=== PATIENT | male | born 1985 | race Caucasian/White ===

== ENCOUNTER 2019-03-20 22:02 | Emergency (ER) | payer BC, MEDICAID ==
[~2019-03-20] VITALS: Ht 182.9 cm; Wt 109.1 kg
[2019-03-20] MEDS ORDERED: LIDOCAINE W/EPINEPHRINE 1% 20ML VIAL SC ONE ×2 (22:30)
[2019-03-20] MEDS ORDERED: AUGMENTIN 875 MG TAB PO ONE (22:30)
[2019-03-20] MEDS ORDERED: TETANUS/DIPHTHERIA TOX ADSORB ADULT 0.5ML SYR/VIAL (90714) IM ONE (22:45)
[2019-03-20] MEDS ORDERED: KEFL500C17 PO (22:48)
[2019-03-20] MEDS ORDERED: CEPHALEXIN 500 MG CAP PO ONE (23:00)
[2019-03-20 23:33] VITALS: BP 138/92
--- NOTE | 2019-03-21 09:46 | REP ---
Portable chest x-ray: Single view. History: Shortness of breath. Pepper spray exposure. Findings: Monitoring electrodes overlie the chest. Heart is not enlarged. Lungs are clear. Pleural angles are sharp. No bony abnormality. Impression: No active disease. Electronically Signed by John Paul Lambert MD 03/21/2019 09:37 A
== END 2019-03-20 23:39 | disposition home or self-care (01) ==
LOC: M ED 22:02
DX: S51.811A Laceration without foreign body of right forearm, initial encounter (principal); S51.812A Laceration without foreign body of left forearm, initial encounter; W26.0XXA Contact with knife, initial encounter; Y92.89 Other specified places as the place of occurrence of the external cause; Z88.0 Allergy status to penicillin; Z88.8 Allergy status to other drugs, medicaments and biological substances; Z91.030 Bee allergy status; F17.210 Nicotine dependence, cigarettes, uncomplicated

== ENCOUNTER 2019-12-21 19:51 | Emergency (ER) | payer BC ==
[~2019-12-21 19:51] MED LIST: KEFL500C17 PO
[2019-12-21] MEDS ORDERED: SERO400T PO (20:10)
[2019-12-21] MEDS ORDERED: METF500T13 PO (20:10)
[2019-12-21] MEDS ORDERED: LEXA1TAB PO (20:10)
[2019-12-21] MEDS ORDERED: ATOR40TA75 PO (20:10)
[2019-12-21] MEDS ORDERED: OMEP-218 PO (20:10)
[2019-12-21] MEDS ORDERED: INSULANT SC (20:10)
[2019-12-21] MEDS ORDERED: PRAZ5CAP PO (20:10)
[2019-12-21] MEDS ORDERED: WELLTAB40 PO (20:10)
[2019-12-21] MEDS ORDERED: GLIP5TAB20 (20:10)
[2019-12-21] MEDS ORDERED: INSUR SC (20:10)
[2019-12-21] MEDS ORDERED: NORT75CA2 PO (20:10)
[2019-12-21] MEDS ORDERED: LABETALOL 100 MG TAB PO ONE (20:45)
[2019-12-21 20:59] VITALS: BP 150/104
--- NOTE | 2019-12-21 21:12 | REPVR ---
PROCEDURE INFORMATION: Exam: CT Head Without Contrast Exam date and time: 12/21/2019 8:46 PM Age: 34 years old Clinical indication: Injury or trauma; Initial encounter; Blunt trauma (contusions or hematomas) TECHNIQUE: Imaging protocol: Computed tomography of the head without contrast. Radiation optimization: All CT scans at this facility use at least one of these dose optimization techniques: automated exposure control; mA and/or kV adjustment per patient size (includes targeted exams where dose is matched to clinical indication); or iterative reconstruction. COMPARISON: No relevant prior studies available. FINDINGS: Brain: Normal. No hemorrhage. Unremarkable white matter. No mass effect. Ventricles: No ventriculomegaly. Bones/joints: Unremarkable. No acute fracture. Paranasal sinuses: Visualized sinuses are unremarkable. No fluid levels. Mastoid air cells: Visualized mastoid air cells are well aerated. Soft tissues: Unremarkable. IMPRESSION: No acute intracranial abnormality. Electronically signed by: Red Wood On 12/21/2019 21:11:44 PM
--- NOTE | 2019-12-21 21:14 | REPVR ---
PROCEDURE INFORMATION: Exam: CT Cervical Spine Without Contrast Exam date and time: 12/21/2019 8:46 PM Age: 34 years old Clinical indication: Injury or trauma; Initial encounter; Blunt trauma TECHNIQUE: Imaging protocol: Computed tomography images of the cervical spine without contrast. Radiation optimization: All CT scans at this facility use at least one of these dose optimization techniques: automated exposure control; mA and/or kV adjustment per patient size (includes targeted exams where dose is matched to clinical indication); or iterative reconstruction. COMPARISON: No relevant prior studies available. FINDINGS: Vertebrae: Vertebral body height and AP alignment is preserved. No acute cervical spine fracture. Discs/Spinal canal/Neural foramina: No definite significant central canal stenosis within limitations of technique. Soft tissues: Unremarkable. Lungs: Lung apices are normal. Pleural space: No visible pneumothorax. IMPRESSION: No acute cervical spine fracture. Electronically signed by: Red Wood On 12/21/2019 21:14:25 PM
[2019-12-21 21:22] LABS: BASO % 0.5 % (0.0-1.0); EOS # 0.1 10^3/uL (0.0-0.5); EOS % 1.5 % (0.0-3.0); HEMATOCRIT 43.5 % (42.0-52.0); LYMPH # 2.4 10^3/uL (1.5-5.0); LYMPH % 36.3 % (24.0-44.0); MEAN CORPUSCULAR HEMOGLOBIN 30.8 pg (27.0-33.0); MEAN CORPUSCULAR HGB CONC 34.5 g/dl (32.0-36.5); MEAN CORPUSCULAR VOLUME 89.3 fl (80.0-96.0); MONO # 0.6 10^3/uL (0.0-0.8); MONO % 8.7 % (0.0-5.0); NEUTROPHILS # 3.4 10^3/uL (1.5-8.5); NEUTROPHILS % 52.5 % (36.0-66.0); PLATELET COUNT, AUTOMATED 274 10^3/uL (150-450); RED BLOOD COUNT 4.87 10^6/uL (4.30-6.10); WHITE BLOOD COUNT 6.6 10^3/uL (4.0-10.0)
--- NOTE | 2019-12-21 21:41 | REPVR ---
PROCEDURE INFORMATION: Exam: XR Chest, 2 Views Exam date and time: 12/21/2019 9:35 PM Age: 34 years old Clinical indication: Chest pain; Type not specified TECHNIQUE: Imaging protocol: XR of the chest Views: 2 views. COMPARISON: [place] PORTABLE CHEST X-RAY 03/20/2019 10:54 PM FINDINGS: Lungs: Unremarkable. No consolidation. Pleural space: Unremarkable. No pleural effusion. No pneumothorax. Heart/Mediastinum: Unremarkable. No cardiomegaly. Bones/joints: Unremarkable. IMPRESSION: No acute findings. Electronically signed by: Red Wood On 12/21/2019 21:41:51 PM
[2019-12-21 22:07] LABS: BLOOD UREA NITROGEN 16 MG/DL (7-18); CALCIUM LEVEL 9.3 MG/DL (8.5-10.1); CARBON DIOXIDE LEVEL 29 MEQ/L (21-32); CHLORIDE LEVEL 100 MEQ/L (98-107); CK-MB VALUE MASS 6.5 NG/ML (<3.6); CPK CREATINE PHOSPHOKINASE 982 U/L (39-308); CREATININE FOR GFR 1.14 MG/DL (0.70-1.30); FREE T4 0.81 NG/DL (0.76-1.46); GLOMERULAR FILTRATION RATE > 60.0 (>60); GLUCOSE, FASTING 153 MG/DL (70-100); MB/CK RELATIVE INDEX 0.66 (< OR =4); POTASSIUM SERUM 4.2 MEQ/L (3.5-5.1); SODIUM LEVEL 134 MEQ/L (136-145); TROPONIN I < 0.02 NG/ML (< 0.10)
[2019-12-21] MEDS ORDERED: NS 1,000 ML IV ONE (22:15)
[2019-12-21 23:04] VITALS: BP 166/78
--- NOTE | 2020-01-08 08:58 | ECGEPIP ---
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
== END 2019-12-21 23:54 | disposition home or self-care (01) ==
LOC: M ED 19:51
DX: S09.90XA Unspecified injury of head, initial encounter (principal); I10 Essential (primary) hypertension; M54.2 Cervicalgia; R29.6 Repeated falls; Y04.8XXA Assault by other bodily force, initial encounter; Y92.149 Unspecified place in prison as the place of occurrence of the external cause; R00.0 Tachycardia, unspecified; E11.9 Type 2 diabetes mellitus without complications; E78.9 Disorder of lipoprotein metabolism, unspecified; Z95.810 Presence of automatic (implantable) cardiac defibrillator

== ENCOUNTER 2020-01-06 13:37 | Inpatient (IN) | payer BC, OTHER ==
[~2020-01-06] VITALS: Ht 185.4 cm; Wt 129.6 kg
[~2020-01-06 13:37] MED LIST changes: +ATOR40TA75 PO; +GLIP5TAB20; +INSULANT SC; +INSUR SC; +LEXA1TAB PO; +METF500T13 PO; +NORT75CA2 PO; +OMEP-218 PO; +PRAZ5CAP PO; +SERO400T PO; +WELLTAB40 PO
[2020-01-06] MEDS ORDERED: NS 1,000 ML IV ONE ×3 (14:00→16:30)
[2020-01-06] MEDS ORDERED: OMEGCAP4 PO (14:09)
[2020-01-06] MEDS ORDERED: LAMO100T80 PO (14:09)
[2020-01-06] MEDS ORDERED: HYDR25TAB PO (14:09)
[2020-01-06] MEDS ORDERED: AMIT25TA PO (14:09)
[2020-01-06] MEDS ORDERED: CLONI1TA PO (14:09)
[2020-01-06 14:20] LABS: BASO % 0.5 % (0.0-1.0); EOS # 0.2 10^3/uL (0.0-0.5); EOS % 2.1 % (0.0-3.0); HEMATOCRIT 43.8 % (42.0-52.0); HEMOGLOBIN 14.9 g/dl (13.5-17.5); LYMPH # 2.5 10^3/uL (1.5-5.0); LYMPH % 30.2 % (24.0-44.0); MEAN CORPUSCULAR HEMOGLOBIN 30.5 pg (27.0-33.0); MEAN CORPUSCULAR VOLUME 89.6 fl (80.0-96.0); MONO # 0.7 10^3/uL (0.0-0.8); MONO % 8.6 % (0.0-5.0); NEUTROPHILS # 4.7 10^3/uL (1.5-8.5); NEUTROPHILS % 57.7 % (36.0-66.0); PLATELET COUNT, AUTOMATED 280 10^3/uL (150-450); RED BLOOD COUNT 4.89 10^6/uL (4.30-6.10); WHITE BLOOD COUNT 8.2 10^3/uL (4.0-10.0)
--- NOTE | 2020-01-06 14:32 | REPVR ---
PROCEDURE INFORMATION: Exam: CT Head Without Contrast Exam date and time: 01/06/2020 2:19 PM Age: 34 years old Clinical indication: Injury or trauma; Fall; Unconscious; Additional info: Loc TECHNIQUE: Imaging protocol: Computed tomography of the head without contrast. Radiation optimization: All CT scans at this facility use at least one of these dose optimization techniques: automated exposure control; mA and/or kV adjustment per patient size (includes targeted exams where dose is matched to clinical indication); or iterative reconstruction. COMPARISON: CT Head without contrast 12/21/2019 8:42 PM FINDINGS: Brain: No acute intracranial hemorrhage, cerebral edema, or midline shift. Cerebral ventricles: No ventriculomegaly. Bones/joints: No acute fracture. Paranasal sinuses: Visualized sinuses are unremarkable. No fluid levels. Mastoid air cells: Visualized mastoid air cells are well aerated. Orbits: The included orbital structures are unremarkable. Soft tissues: Unremarkable. IMPRESSION: No acute intracranial abnormality. Electronically signed by: Jaydon Ibrahim On 01/06/2020 14:32:44 PM
--- NOTE | 2020-01-06 14:52 | REPVR ---
PROCEDURE INFORMATION: Exam: XR Chest, 1 View Exam date and time: 01/06/2020 1:58 PM Age: 34 years old Clinical indication: Pain; Other: Syncope; Additional info: Altered mental status TECHNIQUE: Imaging protocol: XR of the chest Views: 1 view. COMPARISON: CR Chest, 2 view PA, Lat 12/21/2019 8:59 PM FINDINGS: Lungs: Unremarkable. No consolidation. Pleural space: Unremarkable. No pleural effusion. No pneumothorax. Heart/Mediastinum: Unremarkable. No cardiomegaly. Bones/joints: Unremarkable. IMPRESSION: No acute findings. Electronically signed by: Jaydon Ibrahim On 01/06/2020 14:52:23 PM
[2020-01-06 15:00] LABS: ACETAMINOPHEN LEVEL < 2.0 UG/ML (10.0-30.0); ALBUMIN 4.2 GM/DL (3.2-5.2); ALT/SGPT 90 U/L (12-78); BILIRUBIN,DIRECT < 0.1 MG/DL (0.0-0.2); BILIRUBIN,TOTAL 0.3 MG/DL (0.2-1.0); BLOOD UREA NITROGEN 20 MG/DL (7-18); CALCIUM LEVEL 9.9 MG/DL (8.5-10.1); CARBON DIOXIDE LEVEL 25 MEQ/L (21-32); CHLORIDE LEVEL 102 MEQ/L (98-107); CK-MB VALUE MASS 8.6 NG/ML (<3.6); CPK CREATINE PHOSPHOKINASE 928 U/L (39-308); CREATININE FOR GFR 1.49 MG/DL (0.70-1.30); ETHYL ALCOHOL (ETHANOL) < 0.003 % (0.000-0.010); GLOMERULAR FILTRATION RATE 56.8 (>60); GLUCOSE, FASTING 172 MG/DL (70-100); MB/CK RELATIVE INDEX 0.93 (< OR =4); POTASSIUM SERUM 4.6 MEQ/L (3.5-5.1); SALICYLATE LEVEL 1.8 MG/DL (5.0-30.0); SODIUM LEVEL 137 MEQ/L (136-145); TOTAL PROTEIN 7.7 GM/DL (6.4-8.2); TROPONIN I < 0.02 NG/ML (< 0.10)
[2020-01-06] MEDS ORDERED: LIDOCAINE 2% 5ML JELLY UROJET TOP ONE (15:15)
[2020-01-06 18:14] LABS: AMPHETAMINES LEVEL URINE NEGATIVE (NEGATIVE); BARBITURATES URINE NEGATIVE (NEGATIVE); BENZODIAZEPINES URINE NEGATIVE (NEGATIVE); CANNABINOIDS URINE NEGATIVE (NEGATIVE); COCAINE METABOLITE URINE NEGATIVE (NEGATIVE); METHADONE URINE NEGATIVE (NEGATIVE); OPIATES URINE NEGATIVE (NEGATIVE); PHENCYCLIDINE URINE NEGATIVE (NEGATIVE)
--- NOTE | 2020-01-06 18:37 | REPVR ---
PROCEDURE INFORMATION: Exam: XR Abdomen, 1 View Exam date and time: 01/06/2020 5:41 PM Age: 34 years old Clinical indication: Other: R/O fb TECHNIQUE: Imaging protocol: XR of the abdomen. Views: Frontal supine view of the abdomen. 1 View. COMPARISON: No relevant prior studies available. FINDINGS: Gastrointestinal tract: Normal. No bowel dilation. Bones/joints: Unremarkable. Soft tissues: No foreign body is identified. IMPRESSION: No foreign body is identified. Electronically signed by: Jaydon Ibrahim On 01/06/2020 18:37:16 PM
[2020-01-06 18:55] LABS: ACETAMINOPHEN LEVEL < 2.0 UG/ML (10.0-30.0); SALICYLATE LEVEL < 1.7 MG/DL (5.0-30.0)
[2020-01-06] MEDS ORDERED: MOM 30ML SUSPENSION UDC PO PRN (19:45)
[2020-01-06] MEDS ORDERED: ACETAMINOPHEN TAB 650MG DOSE (2X325MG) PO PRN (19:45)
[2020-01-06] MEDS ORDERED: MAALOX 30 ML SUSP *UDC PO PRN (19:45)
--- NOTE | 2020-01-06 19:48 | HPEPDOC ---
[facility] Medical History & Physical Date of Admission Jan 06, 2020 Date of Service: Jan 06, 2020 Other Provider [place] Attending Physician: MELITON VILLAGRAN MD History and Physical TIME OF SERVICE: 8:20 PM CHIEF COMPLAINT: Dizziness HISTORY OF PRESENT ILLNESS: This 34-year-old gentleman has been having episodes of dizziness when he exerts himself for the last year. Since the month. Episodes have been occurring more frequently. Episodes of dizziness accompanied by blurry vision/seeing spots, sensation of the ground moving beneath him, shortness of breath, sweating. He noticed that episodes are usually more severe when he is in the shower. He denies having prodromal chest pain, palpitations, or ringing in his ears. Today he had an episode where he fell, lost consciousness, and bit his tongue but didn't have urinary or fecal incontinence. REVIEW OF SYSTEMS: 12 point review of systems negative except as listed in HPI PAST MEDICAL/ SURGICAL HISTORY: IDDM HTN SOCIAL HISTORY: He quit smoking 1 year ago He does drink alcohol He doesn't use recreational drugs FAMILY HISTORY: Diabetes Dyslipidemia ALLERGIES: Please see below. HOME MEDICATIONS: Please see below. PHYSICAL EXAMINATION: Vital Signs Date Time Temp Pulse Resp B/P (MAP) Pulse Ox O2 Delivery O2 Flow Rate FiO2 01/06/20 13:42 98.3 115 23 170/90 99 Room Air GEN: obese/ well developed/ NAD INTEGUMENT: not flushed/ not jaundice / no rashes / ecchymosis and flat keloid scars that appear to be due to cuts on his lower arms HEENT: he has lacerations on the sides of his tounge / dried blood on his lips /mucus membranes moist and pink / sclera anicteric CVS: RRR/NMRG/ no JVP / no lower extremity edema LUNGS: able to speak full sentences without stopping to take a breath / no coughing / lungs are clear to auscultation bilaterally on room air ABDOMEN: Contour ( obese) MSK/EXTREMITIES: His legs in handcuffs with long chains NEURO: he has horizontal left beating nystagmus / CN 2-12 are grossly intact / speech is not dysarthric / strength is 5/5 PSYCH: alert and oriented to person place and time/ able to understand and follow all commands LABORATORY DATA: 01/06/20 14:05 01/06/20 13:54: Bedside Glucose (Misc Panel) 159H 01/06/20 14:05: Immature Granulocyte % (Auto) 0.9, Neutrophils (%) (Auto) 57.7, Lymphocytes (%) (Auto) 30.2, Monocytes (%) (Auto) 8.6H, Eosinophils (%) (Auto) 2.1, Basophils (%) (Auto) 0.5, Neutrophils # (Auto) 4.7, Lymphocytes # (Auto) 2.5, Monocytes # (Auto) 0.7, Eosinophils # (Auto) 0.2, Basophils # (Auto) 0.0, Nucleated Red Blood Cells % (auto) 0.0, Anion Gap 10, Glomerular Filtration Rate 56.8L, Lactic Acid Level 4.6*H, Calcium Level 9.9, Total Bilirubin 0.3, Direct Bilirubin < 0.1, Aspartate Amino Transf (AST/SGOT) 48H, Alanine Aminotransferase (ALT/SGPT) 90H, Alkaline Phosphatase 72, Ammonia 90H, Total Creatine Kinase 928H, Creatine Kinase MB 8.6H, Creatine Kinase MB Relative Index 0.93, Troponin I < 0.02, Total Protein 7.7, Albumin 4.2, Albumin/Globulin Ratio 1.2, Thyroid Stimulating Hormone (TSH) 1.610, Salicylates Level 1.8L, Acetaminophen Level < 2.0L, Ethyl Alcohol Level < 0.003 01/06/20 17:30: Urine Color YELLOW, Urine Appearance CLEAR, Urine pH 5.0, Urine Specific [place] 1.017, Urine Protein NEGATIVE, Urine Glucose (UA) 1+H, Urine Ketones NEGATIVE, Urine Blood NEGATIVE, Urine Nitrite NEGATIVE, Urine Bilirubin NEGATIVE, Urine Urobilinogen 0.2, Urine Leukocyte Esterase NEGATIVE, Urine WBC (Auto) 2, Urine RBC (Auto) 0, Urine Hyaline Casts (Auto) 4, Urine Bacteria (Auto) NEGATIVE, Urine Squamous Epithelial Cells 0, Urine Mucus (Auto) SMALL, Urine Sperm (Auto) SMALLH, Urine Opiates Screen NEGATIVE, Urine Methadone Screen NEGATIVE, Urine Barbiturates Screen NEGATIVE, Urine Phencyclidine Screen NEGATIVE, Urine Amphetamines Screen NEGATIVE, Urine Benzodiazepines Screen NEGATIVE, Urine Cocaine Metabolite Screen NEGATIVE, Urine Cannabinoids Screen NEGATIVE 01/06/20 18:10: Salicylates Level < 1.7L, Acetaminophen Level < 2.0L IMAGING: CT head "IMPRESSION: No acute intracranial abnormality." Chest xray "IMPRESSION: No acute findings." KUB "IMPRESSION: No foreign body is identified. " MICROBIOLOGY: Please see below. ASSESSMENT: is a 34-year-old with history of IDDM who had a syncopal episode that is suspicious for seizure: he will be admitted evaluation of syncope vs seizure, SIRS, KAYDEN, mild rhabdomyolysis, and transaminitis. PLAN: 1. Syncope vs Seizure I suspect this is a seizure because he bit his tongue He denies having a hx of seizure disorder but admits to being under stress (he is incarcerated) CT of the head didn't show any edema The drug screen was unrevealing, but the drug screen ordered is a limited panel EKG didn't show an arrhythmia & his QTC is 390 His K, glucose and Ca are wnl He denied having a hx of seizures, but is on Lamotrigine Plan: admit to PCU / telemetry / hold HTCZ and prazosin pending orthostats/ fall precautions/ seizure precautions/ frequent neuro checks /check lamotrigine levels & resume prior dose/ the day time team may consult Neuro in the morning and discuss if the pt should get an MRI w contrast to definitively r/o mass and whether his lamotrigine dose should be adjusted/ f/u EEG / its to late to draw blood for prolactin 2. SIRS Possibly reactive or 2/2 occult infection SIRS criterial tachycardia w tachypnea Chest xray and UA are unrevealing but he has lactic acidosis Plan: f/u blood cx & VBG / no abx bc we don't have a source of infection 3. KAYDEN Possibly pre-renal or 2/2 rhabdo He admits to not drinking much lately Plan: f/u Ulytes for FENa & renal US / IVF / hold metformin 4. Lactic acidosis Possibly 2/2 seizures or infection Plan: f/u blood cx, trend lactic acid 5. Mild Rhabdomyolysis 2/2 fall vs other drug not captured on our drug screen Lea Rhabdomyolysis Risk Score to predict the risk of severe KAYDEN or mortality in patients with rhabdomyolysis = 1.5 = 1.8% risk of KAYDEN requiring INVENTORY ASSISTANT or Plan: IVF/ trend CPK 6. Transaminitis Plan: f/u Hep Panel & liver US 7. Hyperammonemia Likely related to transaminitis Plan: no treatment because he is lucid 8. IDDM He reports that his AM glucose ranges from 80 to 150 Plan: diabetic diet / f/u accuchecks & A1C / hypoglycemia protocol / sliding scale insulin / hold oral anti-glycemics / c/w atorvastatin, decrease lantus from 24 units to 15 units QHS 9. Chronic HTN Plan: hold HTCZ pending orthostats / c/w clonidine / may consider starting amlodipine 10. Obesity He has a BMI of 36.5 which complicates care. Plan: since he has a BMI >35 w DM he is a candidate for bariatric surgery, he can f/u w his PCP to discuss this and for screening for sleep apnea 11.Psychiatric Disorders? He didn't report a hx of Psych disorders but is on various psych meds Plan: c/w amitriptyline and escitalopram DVT PROPHYLAXIS: SCDs DISPOSITION: into police custody after more than 2 midnight's stay Home Medications Scheduled Amitriptyline HCl (Amitriptyline HCl) 75 Mg Tablet, 75 MG PO QHS Atorvastatin Calcium (Atorvastatin Calcium) 20 Mg Tablet, 20 MG PO QHS Bupropion HCl (Wellbutrin Xl) 300 Mg Tab.er.24h, 300 MG PO DAILY Clonidine Hcl (Clonidine HCl) 0.1 Mg Tablet, 0.1 MG PO BID Escitalopram Oxalate (Lexapro) 10 Mg Tablet, 30 MG PO DAILY Glipizide (Glucotrol) 5 Mg Tablet, 5 MG PO DAILY Hydrochlorothiazide (Hydrochlorothiazide) 25 Mg Tablet, 25 MG PO DAILY Insulin Glargine (Lantus) 100 Unit/1 Ml Vial, 24 UNITS SC QHS Insulin Human Regular (Novolin R) 100 Unit/1 Ml Vial, 1 DOSE SC AC PER SLIDING SCALE Lamotrigine (Lamotrigine) 100 Mg Tablet, 25 MG PO DAILY Metformin HCl (Metformin HCl) 500 Mg Tablet, 500 MG PO BID Nortriptyline HCl (Nortriptyline HCl) 25 Mg Capsule, 75 MG PO BID [place]-3/Dha/Epa/Fish Oil ([place]-3 Fish Oil 1,000 mg Sfgl) 1,000 Mg Capsule, 1 CAP PO BID Omeprazole (Omeprazole) 20 Mg Capsule.dr, 20 MG PO DAILY Prazosin Hcl (Prazosin HCl) 2 Mg Capsule, 4 MG PO QHS Quetiapine Fumarate (Seroquel) 400 Mg Tablet, 400 MG PO QHS TAKES WITH 100MG FOR TOTAL DOSE 500MG QHS Quetiapine Fumarate (Quetiapine Fumarate) 100 Mg Tablet, 100 MG PO QHS TAKES WITH 400MG FOR TOTAL DOSE 500MG QHS Allergies Coded Allergies: bee venom protein (honey bee) (Verified Allergy, Severe, ANAPHYLAXIS, 01/06/20) amoxicillin (Unverified Allergy, Unknown, UNKNOWN REACTION PER PT, 01/06/20) clavulanic acid (Unverified Allergy, Unknown, UNKNOWN REACTION PER PT, 01/06/20) A-FIB/CHADSVASC A-FIB History Current/History of A-Fib/PAF?: No Current PO Anticoag Therapy: No MELITON VILLAGRAN MD Jan 06, 2020 19:48
[2020-01-06] MEDS: NS 1,000 ML IV SCH (19:57)
[2020-01-06] MEDS ORDERED: PRAZ2CAP PO (20:21)
[2020-01-06] MEDS ORDERED: NORT25CA2 PO (20:21)
[2020-01-06] MEDS ORDERED: ATOR1TAB21 PO (20:21)
[2020-01-06] MEDS ORDERED: GLUC5TAB3 PO (20:21)
[2020-01-06] MEDS ORDERED: QUET100T2 PO (20:21)
[2020-01-06] MEDS ORDERED: AMIT75TA67 PO (20:28)
--- NOTE | 2020-01-06 20:42 | ECGEPIP ---
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
[2020-01-06] MEDS ORDERED: GLUCOSE 4GM CHEW TABLET PO PRN (21:30)
[2020-01-06] MEDS ORDERED: DEXTROSE 50% 50 ML SYRINGE IV PRN (21:30)
[2020-01-06] MEDS ORDERED: GLUCAGON INJ 1MG VIAL SC PRN (21:30)
[2020-01-06] MEDS ORDERED: levETIRAcetam INJection 1,000 MG in D5W 100 ML IV ONE (21:30)
[2020-01-06 21:41] LABS: VENOUS BASE EXCESS 0.4 (-2.0-2.0); VENOUS HCO3 25.5 MEQ/L (23.0-27.0); VENOUS O2 SATURATION 98.3 % (60.0-80.0); VENOUS PARTIAL PRESSURE CO2 42.6 mmHg (38.0-50.0); VENOUS PARTIAL PRESSURE O2 126.2 mmHg (30.0-50.0); VENOUS PH 7.395 UNITS (7.330-7.430); VENOUS STANDARD HCO3 24.9 MEQ/L; VENOUS TOTAL CO2 26.8 MEQ/L (24.0-28.0)
[2020-01-06 21:55] LABS: PHOSPHORUS LEVEL 3.1 MG/DL (2.5-4.9)
[2020-01-06 21:56] LABS: INR 0.89; PROTHROMBIN TIME 12.3 SECONDS (12.5-14.3)
[2020-01-06 21:57] LABS: PARTIAL THROMBOPLASTIN TIME 23.8 SECONDS (24.2-38.5)
[2020-01-06 22:09] LABS: HEPATITIS B SURFACE ANTIBODY NEGATIVE (POSITIVE)
[2020-01-06 22:20] LABS: HEPATITIS B SURFACE ANTIGEN NEGATIVE (NEGATIVE)
[2020-01-06 22:48] LABS: HEPATITIS B CORE ANTIBODY IGM NEGATIVE (NEGATIVE); HEPATITIS C VIRUS ABY INDEX 0.2 INDEX (<0.8)
[2020-01-06] MEDS: QUEtiapine FUMARATE 100 MG TAB PO SCH (23:06)
[2020-01-06] MEDS: LEVEMIR (INSULIN DETEMIR) 1 UNITS/0.01ML SC SCH (23:07)
[2020-01-06] MEDS: ATORVASTATIN 20 MG TAB PO SCH (23:07)
[2020-01-06] MEDS: QUEtiapine FUMARATE 200 MG TAB PO SCH (23:07)
[2020-01-06] MEDS: HumaLOG INSULIN (NovoLOG) PER UNIT SC SCH (23:07)
[2020-01-06 23:30] VITALS: BP 160/75
[2020-01-06 23:35] VITALS: BP 160/76
[2020-01-06 23:40] VITALS: BP 166/82
[2020-01-07] MEDS: NORTRIPTYLINE 25 MG CAP PO SCH ×3 (00:53→21:38)
[2020-01-07] MEDS: AMITRIPTYLINE 25 MG TAB PO SCH ×2 (00:54→21:39)
[2020-01-07] MEDS: NS 1,000 ML IV SCH ×3 (03:20→18:53)
[2020-01-07 04:00] VITALS: BP 131/87
[2020-01-07 05:27] LABS: MEAN CORPUSCULAR HEMOGLOBIN 30.5 pg (27.0-33.0); MEAN CORPUSCULAR HGB CONC 33.3 g/dl (32.0-36.5); MEAN CORPUSCULAR VOLUME 91.5 fl (80.0-96.0); PLATELET COUNT, AUTOMATED 209 10^3/uL (150-450); RED BLOOD COUNT 4.26 10^6/uL (4.30-6.10); WHITE BLOOD COUNT 6.9 10^3/uL (4.0-10.0)
[2020-01-07 05:50] LABS: HEMOGLOBIN A1c 6.9 %
[2020-01-07 06:15] LABS: ALBUMIN 3.4 GM/DL (3.2-5.2); ALT/SGPT 70 U/L (12-78); BILIRUBIN,TOTAL 0.3 MG/DL (0.2-1.0); BLOOD UREA NITROGEN 18 MG/DL (7-18); CALCIUM LEVEL 8.4 MG/DL (8.5-10.1); CARBON DIOXIDE LEVEL 28 MEQ/L (21-32); CHLORIDE LEVEL 107 MEQ/L (98-107); CPK CREATINE PHOSPHOKINASE 1160 U/L (39-308); CREATININE FOR GFR 1.02 MG/DL (0.70-1.30); GLOMERULAR FILTRATION RATE > 60.0 (>60); GLUCOSE, FASTING 148 MG/DL (70-100); MAGNESIUM LEVEL 2.2 MG/DL (1.8-2.4); POTASSIUM SERUM 3.9 MEQ/L (3.5-5.1); SODIUM LEVEL 138 MEQ/L (136-145); TOTAL PROTEIN 6.5 GM/DL (6.4-8.2)
[2020-01-07 08:00] VITALS: BP 152/94
[2020-01-07] MEDS: buPROPion **XL** TABLET 150MG (WELLBUTRIN XL) PO SCH (08:29)
[2020-01-07] MEDS: lamoTRIgine 25 MG TAB PO SCH (08:29)
[2020-01-07] MEDS: ESCITALOPRAM OXALATE 10 MG TAB (LEXAPRO) PO SCH (08:29)
[2020-01-07] MEDS: cloNIDine 0.1 MG TAB PO SCH ×2 (08:30→21:38)
[2020-01-07] MEDS: HumaLOG INSULIN (NovoLOG) PER UNIT SC SCH ×4 (08:31→20:46)
[2020-01-07] MEDS ORDERED: levETIRAcetam 250MG TABLET (KEPPRA) PO SCH (09:00)
[2020-01-07 12:00] VITALS: BP 138/83
--- NOTE | 2020-01-07 15:16 | REPVR ---
PROCEDURE INFORMATION: Exam: US Abdomen Complete Exam date and time: 01/07/2020 3:01 PM Age: 34 years old Clinical indication: Screening exam; Other: Livan and transaminitis TECHNIQUE: Imaging protocol: Real-time ultrasound of the abdomen with image documentation. COMPARISON: No relevant prior studies available. FINDINGS: Liver: The liver is normal in size with diffuse increase in hepatic parenchymal echogenicity, consistent with fatty infiltration.There are no focal lesions present. Gallbladder: The gallbladder is well distended without evidence for gallstones, wall thickening or pericholecystic fluid. Common bile duct: 4 mm. No stones. No dilation. Pancreas: The pancreas is obscured by overlying bowel gas limiting evaluation. Right kidney: The right kidney is not visualized which could be secondary to congenital absence versus obscured by overlying bowel gas. Left kidney: The left kidney is enlarged in size measuring 14.8 cm in length without evidence for calculus or hydronephrosis. Spleen: The spleen is mildly enlarged measuring 13.4 cm in length with normal echotexture. Aorta: The aorta is obscured by overlying bowel gas limiting evaluation. Inferior vena cava: Normal. Intraperitoneal space: There is no evidence of free intraperitoneal fluid. Other findings: The study is limited due to patient's body habitus. IMPRESSION: 1. The study is limited due to patient's body habitus. 2. The liver is normal in size with diffuse increase in hepatic parenchymal echogenicity, consistent with fatty infiltration.There are no focal lesions present. 3. The gallbladder is well distended without evidence for gallstones, wall thickening or pericholecystic fluid. 4. The spleen is mildly enlarged measuring 13.4 cm in length with normal echotexture. 5. The right kidney is not visualized which could be secondary to congenital absence versus obscured by overlying bowel gas. 6. The left kidney is enlarged in size measuring 14.8 cm in length without evidence for calculus or hydronephrosis. This could be secondary to compensatory hypertrophy. Electronically signed by: Jose Wilkins On 01/07/2020 15:16:22 PM
[2020-01-07 16:00] VITALS: BP 139/88
[2020-01-07 20:00] VITALS: BP 140/83
--- NOTE | 2020-01-07 20:00 | IPNPDOC ---
Subjective Date Seen The patient was seen on 01/07/20. Subjective Chief Complaint/HPI Mr. Jaramillo is a 34 year old male here with syncope vs possible seizure which has been worsening since Dec 20. Today, he reported chronic dyspnea, but otherwise denied fever/chills, chest pain, abdominal pain, or dysuria. Outside the room, the officer mentioned he may have been doing other drugs, possibly bath salts. Constitutional: Denies: Chills, Fever Pulmonary: Reports: Dyspnea (chronic) Cardiovascular: Denies: Chest Pain Gastrointestinal: Denies: Nausea, Abdominal Pain Genitourinary: Denies: Dysuria Assessment /Plan Assessment Mr. Jaramillo is a 34 year old male here for syncope vs seizure. Today, he will have the EEG, pending results. Otherwise, will add on echocardiogram as part of syncope work up. Officers brought up concern for recreational drug use. Utox was negative, but will expand to blood tox screen and urine bath salts. Pending results Plan/VTE VTE Prophylaxis Ordered?: Yes Plan 1. Syncope vs Seizure - Completing syncope workup with Echocardiogram - Pending EEG results - Checking lamotrigine levels - Checking orthostatic vitals 2. KAYDEN - Creatinine elevated on admission (1.49) with elevated creatinine kinase (928) - Resolved with fluids - Continue to monitor 3. Rhabdomyolysis - Creatinine kinase increased today to 1160 - Continue with IV fluids 4. Lactic acidosis - On admission 4.6 - Resolved with fluids (last 1.6) 5. DM - ISS and carbohydrate consistent diet 6. Hypertension - Continue clonidine - Holding HCTZ until after orthostatics 7. Obesity - BMI of 36.5 - Recommend weight loss, diet, and exercise 8. DVT PPX - SCD and TEDs VS, I&O, 24H, Fishbone Vital Signs/I&O Vital Signs Date Time Temp Pulse Resp B/P (MAP) Pulse Ox O2 Delivery O2 Flow Rate FiO2 01/07/20 12:00 97.9 89 18 138/83 (101) 96 Room Air I&O- Last 24 Hours up to 6 AM 01/07/20 06:00 Intake Total 2925 ml Balance 2925 ml Laboratory Data 24H LABS Laboratory Tests 2 01/06/20 17:30: Urine Color YELLOW, Urine Appearance CLEAR, Urine pH 5.0, Urine Specific [place] 1.017, Urine Protein NEGATIVE, Urine Glucose (UA) 1+H, Urine Ketones NEGATIVE, Urine Blood NEGATIVE, Urine Nitrite NEGATIVE, Urine Bilirubin NEGATIVE, Urine Urobilinogen 0.2, Urine Leukocyte Esterase NEGATIVE, Urine WBC (Auto) 2, Urine RBC (Auto) 0, Urine Hyaline Casts (Auto) 4, Urine Bacteria (Auto) NEGATIVE, Urine Squamous Epithelial Cells 0, Urine Mucus (Auto) SMALL, Urine Sperm (Auto) SMALLH, Urine Opiates Screen NEGATIVE, Urine Methadone Screen NEGATIVE, Urine Barbiturates Screen NEGATIVE, Urine Phencyclidine Screen NEGATIVE, Urine Amphetamines Screen NEGATIVE, Urine Benzodiazepines Screen NEGATIVE, Urine Cocaine Metabolite Screen NEGATIVE, Urine Cannabinoids Screen NEGATIVE 01/06/20 18:10: Salicylates Level < 1.7L, Acetaminophen Level < 2.0L 01/06/20 20:23: Prothrombin Time 12.3, Prothromb Time International Ratio 0.89, Activated Partial Thromboplast Time 23.8L, Blood Gas Bicarbonate Standard 24.9, Venous Blood pH 7.395, Venous Blood Partial Pressure CO2 42.6, Venous Blood Partial Pressure O2 126.2H, Venous Blood Total Carbon Dioxide 26.8, Venous Blood HCO3 25.5, Venous Blood Oxygen Saturation 98.3H, Venous Blood Base Excess 0.4, Lactic Acid Level 1.6 01/06/20 20:24: Phosphorus Level 3.1, Hepatitis B Surface Antigen NEGATIVE, Hepatitis B Surface Antibody NEGATIVE, Hepatitis B Core IgM Antibody NEGATIVE, Hepatitis C Antibody Index 0.2 01/06/20 21:02: Lactic Acid Followup at 4 Hours 1.3 01/06/20 21:45: Bedside Glucose (Misc Panel) 100 01/06/20 21:58: 01/07/20 05:12: Nucleated Red Blood Cells % (auto) 0.0, Anion Gap 3L, Glomerular Filtration Rate > 60.0, Estimated Mean Plasma Glucose 151H, Hemoglobin A1c 6.9, Calcium Level 8.4#L, Magnesium Level 2.2, Total Bilirubin 0.3, Aspartate Amino Transf (AST/SGOT) 40H, Alanine Aminotransferase (ALT/SGPT) 70, Alkaline Phosphatase 61, Total Creatine Kinase 1160H, Total Protein 6.5, Albumin 3.4, Albumin/Globulin Ratio 1.1 01/07/20 11:16: Bedside Glucose (Misc Panel) 166H 01/07/20 12:19: CBC/BMP Laboratory Tests 01/07/20 05:12 Microbiology Microbiology 01/06/20 Blood Culture, Received Pending 01/06/20 Blood Culture, Received Pending FELICIA NIEVES DO Jan 07, 2020 14:24
[2020-01-07] MEDS: LEVEMIR (INSULIN DETEMIR) 1 UNITS/0.01ML SC SCH (21:00)
[2020-01-07] MEDS ORDERED: LEVEMIR (INSULIN DETEMIR) 1 UNITS/0.01ML SC ONE (21:30)
[2020-01-07] MEDS: QUEtiapine FUMARATE 100 MG TAB PO SCH (21:38)
[2020-01-07] MEDS: QUEtiapine FUMARATE 200 MG TAB PO SCH (21:38)
[2020-01-07] MEDS: ATORVASTATIN 20 MG TAB PO SCH (21:39)
[2020-01-08] VITALS (8 sets, daily range): BP systolic 137–164; BP diastolic 65–96
[2020-01-08] MEDS: NS 1,000 ML IV SCH ×3 (04:55→20:52)
[2020-01-08 05:48] LABS: HEMATOCRIT 37.9 % (42.0-52.0); HEMOGLOBIN 12.4 g/dl (13.5-17.5); MEAN CORPUSCULAR HEMOGLOBIN 30.5 pg (27.0-33.0); MEAN CORPUSCULAR HGB CONC 32.7 g/dl (32.0-36.5); MEAN CORPUSCULAR VOLUME 93.1 fl (80.0-96.0); PLATELET COUNT, AUTOMATED 202 10^3/uL (150-450); RED BLOOD COUNT 4.07 10^6/uL (4.30-6.10); WHITE BLOOD COUNT 5.9 10^3/uL (4.0-10.0)
[2020-01-08 06:23] LABS: BLOOD UREA NITROGEN 15 MG/DL (7-18); CALCIUM LEVEL 8.4 MG/DL (8.5-10.1); CARBON DIOXIDE LEVEL 26 MEQ/L (21-32); CHLORIDE LEVEL 109 MEQ/L (98-107); CREATININE FOR GFR 1.05 MG/DL (0.70-1.30); GLOMERULAR FILTRATION RATE > 60.0 (>60); GLUCOSE, FASTING 108 MG/DL (70-100); POTASSIUM SERUM 4.3 MEQ/L (3.5-5.1); SODIUM LEVEL 141 MEQ/L (136-145)
[2020-01-08] MEDS: HumaLOG INSULIN (NovoLOG) PER UNIT SC SCH ×4 (07:30→20:44)
[2020-01-08] MEDS: buPROPion **XL** TABLET 150MG (WELLBUTRIN XL) PO SCH (07:55)
[2020-01-08] MEDS: NORTRIPTYLINE 25 MG CAP PO SCH ×2 (07:55→20:50)
[2020-01-08] MEDS: cloNIDine 0.1 MG TAB PO SCH ×2 (07:55→20:50)
[2020-01-08] MEDS: ESCITALOPRAM OXALATE 10 MG TAB (LEXAPRO) PO SCH (07:56)
[2020-01-08] MEDS: lamoTRIgine 25 MG TAB PO SCH (07:56)
--- NOTE | 2020-01-08 17:01 | IPNPDOC ---
Subjective Date Seen The patient was seen on 01/08/20. Subjective Chief Complaint/HPI Mr. Jaramillo is a 34 year old male here with syncope vs possible seizure which has been worsening since Dec 20. Today, he reported chronic dyspnea, but otherwise denied fever/chills, chest pain, abdominal pain, or dysuria. He had some tremors in his hands that was noticeable at rest and activity, but no worse than yesterday. He denies family history of tremors. He have not drank alcohol in a year, unknown if tremors improve with alcohol Constitutional: Denies: Chills, Fever Pulmonary: Reports: Dyspnea Cardiovascular: Denies: Chest Pain Gastrointestinal: Denies: Abdominal Pain Genitourinary: Denies: Dysuria Objective Physical Examination General Exam: Positive: Alert, Cooperative, No Acute Distress Eye Exam: Positive: EOMI; Negative: Sclera icteric ENT Exam: Positive: Atraumatic Neck Exam: Positive: Supple Chest Exam: Positive: Clear to auscultation Heart Exam: Positive: Rate Normal, Regular Rhythm Abdomen Exam: Positive: Normal bowel sounds Extremity Exam: Positive: Edema (mild bilateral pitting edema) Neuro Exam: Positive: Cranial Nerves 3-12 NL, Other (tremors in hand with and without activity) Psych Exam: Positive: Mental status NL, Mood NL Assessment /Plan Assessment Mr. Jaramillo is a 34 year old male here for syncope vs seizure. Yesterday, he had an EEG. Spoke with neurologist who says it appears normal. Official read pending. Currently pending echocardiogram. Unlikely seizure at this point. Patient most likely had syncope. Unknown etiology, may be secondary to drug use. Pending toxicology blood work results. Pending echocardiogram read. Possible discharge tomorrow after echocardiogram read. Plan/VTE VTE Prophylaxis Ordered?: Yes Plan 1. Syncope vs Seizure - Spoke with neurology about EEG results. Appears normal. - Unlikely seizure, most likely syncope. May be secondary to drug use, pending blood toxicology - Pending echocardiogram read. - No episodes while in hospital. Possible discharge tomorrow after echocardiogram read 2. KAYDEN - Creatinine elevated on admission (1.49) with elevated creatinine kinase (928) - Resolved with fluids - Continue to monitor 3. Rhabdomyolysis - Creatinine kinase increased today to 1160 - Continue with IV fluids 4. Lactic acidosis - On admission 4.6 - Resolved with fluids (last 1.6) 5. DM - ISS and carbohydrate consistent diet 6. Hypertension - Continue clonidine - Holding HCTZ until after orthostatics 7. Obesity - BMI of 36.5 - Recommend weight loss, diet, and exercise 8. DVT PPX - SCD and TEDs Dispo: Possible discharge tomorrow after echocardiogram read. Follow up blood toxicology and urine bath salts after discharge. VS, I&O, 24H, Fishbone Vital Signs/I&O Vital Signs Date Time Temp Pulse Resp B/P (MAP) Pulse Ox O2 Delivery O2 Flow Rate FiO2 01/08/20 12:00 97.9 59 19 161/78 (105) 93 Room Air I&O- Last 24 Hours up to 6 AM 01/08/20 06:00 Intake Total 4360 ml Output Total 2100 ml Balance 2260 ml Laboratory Data 24H LABS Laboratory Tests 2 01/07/20 20:37: Bedside Glucose (Misc Panel) 156H 01/08/20 05:27: Nucleated Red Blood Cells % (auto) 0.0, Anion Gap 6L, Glomerular Filtration Rate > 60.0, Calcium Level 8.4L 01/08/20 12:01: Bedside Glucose (Misc Panel) 127H 01/08/20 16:40: Bedside Glucose (Misc Panel) 103 CBC/BMP Laboratory Tests 01/08/20 05:27 Microbiology Microbiology 01/06/20 Blood Culture - Preliminary, Resulted No growth after 24 hours . All specim... 01/06/20 Blood Culture - Preliminary, Resulted No growth after 24 hours . All specim... FELICIA NIEVES DO Jan 08, 2020 17:01
[2020-01-08] MEDS: ATORVASTATIN 20 MG TAB PO SCH (20:51)
[2020-01-08] MEDS: QUEtiapine FUMARATE 100 MG TAB PO SCH (20:51)
[2020-01-08] MEDS: QUEtiapine FUMARATE 200 MG TAB PO SCH (20:51)
[2020-01-08] MEDS: AMITRIPTYLINE 25 MG TAB PO SCH (20:51)
[2020-01-08] MEDS: LEVEMIR (INSULIN DETEMIR) 1 UNITS/0.01ML SC SCH (20:51)
[2020-01-09] VITALS: BP 139/89
[2020-01-09 04:00] VITALS: BP 138/95
[2020-01-09 05:53] LABS: HEMATOCRIT 37.9 % (42.0-52.0); HEMOGLOBIN 12.8 g/dl (13.5-17.5); MEAN CORPUSCULAR HGB CONC 33.8 g/dl (32.0-36.5); MEAN CORPUSCULAR VOLUME 91.8 fl (80.0-96.0); PLATELET COUNT, AUTOMATED 217 10^3/uL (150-450); RED BLOOD COUNT 4.13 10^6/uL (4.30-6.10); WHITE BLOOD COUNT 5.9 10^3/uL (4.0-10.0)
[2020-01-09 06:23] LABS: BLOOD UREA NITROGEN 14 MG/DL (7-18); CALCIUM LEVEL 8.7 MG/DL (8.5-10.1); CARBON DIOXIDE LEVEL 29 MEQ/L (21-32); CHLORIDE LEVEL 105 MEQ/L (98-107); CREATININE FOR GFR 0.97 MG/DL (0.70-1.30); GLOMERULAR FILTRATION RATE > 60.0 (>60); GLUCOSE, FASTING 164 MG/DL (70-100); POTASSIUM SERUM 3.8 MEQ/L (3.5-5.1); SODIUM LEVEL 140 MEQ/L (136-145)
[2020-01-09 08:00] VITALS: BP 137/91
[2020-01-09] MEDS: NS 1,000 ML IV SCH (08:15)
[2020-01-09] MEDS: HumaLOG INSULIN (NovoLOG) PER UNIT SC SCH ×2 (08:17→12:11)
[2020-01-09] MEDS: lamoTRIgine 25 MG TAB PO SCH (08:18)
[2020-01-09] MEDS: buPROPion **XL** TABLET 150MG (WELLBUTRIN XL) PO SCH (08:18)
[2020-01-09] MEDS: NORTRIPTYLINE 25 MG CAP PO SCH (08:18)
[2020-01-09] MEDS: ESCITALOPRAM OXALATE 10 MG TAB (LEXAPRO) PO SCH (08:18)
[2020-01-09 08:19] VITALS: BP 137/76
[2020-01-09] MEDS: cloNIDine 0.1 MG TAB PO SCH (08:19)
[2020-01-09 12:00] VITALS: BP 152/94
--- NOTE | 2020-01-09 19:55 | DS.PDOC ---
Discharge Summary General Date of Admission Jan 06, 2020 at 19:33 Date of Discharge Jan 09, 2020 Attending Physician: FELICIA NIEVES DO Discharge Summary PROCEDURES PERFORMED DURING STAY: EEG. ADMITTING DIAGNOSES: 1. Syncope versus seizure 2. Acute renal injury 3. Lactic acidosis 4. Rhabdomyolysis 5. Transaminitis 6. Diabetes mellitus 7. Hypertension 8. Obesity DISCHARGE DIAGNOSES: 1. Syncope 2. Acute renal injury 3. Lactic acidosis 4. Rhabdomyolysis 5. Transaminitis 6. Diabetes mellitus 7. Hypertension 8. Obesity COMPLICATIONS/CHIEF COMPLAINT: Syncope And Collapse. HISTORY OF PRESENT ILLNESS: Mr. Jaramillo is a 34-year-old male with diabetes, hypertension, and obesity who comes from a correctional facility for an episode of syncope versus seizure. He notes that since December 20 he's been having more episodes of dizziness. Episodes of dizziness accompanied by blurry vision and the sensation that the ground is moving beneath him. The symptoms are more severe when he is in the shower. On the day of admission had a syncopal event. He bit his tongue but no urinary or fecal incontinence. HOSPITAL COURSE: During his hospitalization, he is worked up for syncope and s eizure. He had an EEG that was overall normal. While on the telemetry, there is no arrhythmias. His echocardiogram was within normal. While he was here, he had no episodes of syncope. He denied dizziness. Initially when I saw him, I noticed that he had tremors. I did finger to nose with him, he would have tremors going between my finger to his nose. By the third day of his admission, the tremors h ad mostly subsided. In addition while he was here, the officer spoke to me with concern that the patient may have been doing drugs while in the present. Urine tox was negative. Expanded search to urine bath salts and blood tox. These results may take several days to return. Today he was feeling well. He had some dyspnea, but he is breathing well at room air. Lungs sound clear. He may have some atelectasis from being in bed all day. Denied any lightheadedness or dizziness, chest pain, abdominal pain, diarrhea, or dysuria. We returned him to the correctional facility today. DISCHARGE MEDICATIONS: Please see below. ALLERGIES: Please see below. PHYSICAL EXAMINATION ON DISCHARGE: VITAL SIGNS: Please see below. GENERAL: Comfortable, in no apparent distress. HEENT: Head normocephalic/atraumatic, EOMI, sclera clear. NECK: Supple RESPIRATORY: Lungs clear to auscultation bilaterally, no rales, wheeze or rhonchi. CARDIOVASCULAR: Regular rate and rhythm. ABDOMEN: Soft, nontender, no guarding or rebound tenderness. Normal bowel sounds. MUSCLE SKELETAL: Muscle strength 5/5 in all extremities. NEUROLOGICAL: CN 312 grossly intact, no focal deficits noted. PSYCHOLOGICAL: Normal mood and affect LABORATORY DATA: Please see below. IMAGING: CT head No acute intracranial abnormality Abdominal x-ray No foreign body is identified. Ultrasound abdomen 1. The study is limited due to patient's body habitus. 2. The liver is normal in size with diffuse increase in hepatic parenchymal echogenicity, consistent with fatty infiltration.There are no focal lesions present. 3. The gallbladder is well distended without evidence for gallstones, wall thickening or pericholecystic fluid. 4. The spleen is mildly enlarged measuring 13.4 cm in length with normal echotexture. 5. The right kidney is not visualized which could be secondary to congenital absence versus obscured by overlying bowel gas. 6. The left kidney is enlarged in size measuring 14.8 cm in length without evidence for calculus or hydronephrosis. This could be secondary to compensatory hypertrophy. PROGNOSIS: Stable ACTIVITY: As tolerated DIET: Regular DISCHARGE PLAN: Return to correctional facility DISPOSITION: [address]/Law Enforcem. DISCHARGE INSTRUCTIONS: 1. Follow-up with her PCP within a week. ITEMS TO FOLLOWUP ON ON OUTPATIENT: 1. Follow-up on blood tox and urine bath salts DISCHARGE CONDITION: Stable. Total time spent on discharge planning, discharge summary, and med reconciliation: 45 minutes Vital Signs/I&Os Vital Signs Date Time Temp Pulse Resp B/P (MAP) Pulse Ox O2 Delivery O2 Flow Rate FiO2 01/09/20 12:00 96.8 84 18 152/94 (113) 97 Room Air I&O- Last 24 Hours up to 6 AM 01/09/20 06:00 Intake Total 2100 ml Output Total 2400 ml Balance -300 ml Laboratory Data Labs 24H Laboratory Tests 2 01/08/20 20:42: Bedside Glucose (Misc Panel) 129H 01/09/20 05:17: Nucleated Red Blood Cells % (auto) 0.3H, Anion Gap 6L, Glomerular Filtration Rate > 60.0, Calcium Level 8.7 10/3/20 11:37: Bedside Glucose (Misc Panel) 183H CBC/BMP Laboratory Tests 01/09/20 05:17 FSBS Laboratory Tests Test 01/08/20 20:42 01/09/20 11:37 Range/Units Bedside Glucose (Misc Panel) 129 183 70-105 MG/DL Microbiology Microbiology 01/06/20 Blood Culture - Preliminary, Resulted No Growth after 48 hours. All Specime... 01/06/20 Blood Culture - Preliminary, Resulted No Growth after 48 hours. All Specime... Discharge Medications Scheduled Amitriptyline HCl (Amitriptyline HCl) 75 Mg Tablet, 75 MG PO QHS, (Reported) Atorvastatin Calcium (Atorvastatin Calcium) 20 Mg Tablet, 20 MG PO QHS, (Reported) Bupropion HCl (Wellbutrin Xl) 300 Mg Tab.er.24h, 300 MG PO DAILY, (Reported) Clonidine Hcl (Clonidine HCl) 0.1 Mg Tablet, 0.1 MG PO BID, (Reported) Escitalopram Oxalate (Lexapro) 10 Mg Tablet, 30 MG PO DAILY, (Reported) Glipizide (Glucotrol) 5 Mg Tablet, 5 MG PO DAILY, (Reported) Hydrochlorothiazide (Hydrochlorothiazide) 25 Mg Tablet, 25 MG PO DAILY, (Reported) Insulin Glargine (Lantus) 100 Unit/1 Ml Vial, 24 UNITS SC QHS, (Reported) Insulin Human Regular (Novolin R) 100 Unit/1 Ml Vial, 1 DOSE SC AC, (Reported) PER SLIDING SCALE Lamotrigine (Lamotrigine) 100 Mg Tablet, 25 MG PO DAILY, (Reported) Metformin HCl (Metformin HCl) 500 Mg Tablet, 500 MG PO BID, (Reported) Nortriptyline HCl (Nortriptyline HCl) 25 Mg Capsule, 75 MG PO BID, (Reported) Carr-3/Dha/Epa/Fish Oil (Carr-3 Fish Oil 1,000 mg Sfgl) 1,000 Mg Capsule, 1 CAP PO BID, (Reported) Omeprazole (Omeprazole) 20 Mg Capsule.dr, 20 MG PO DAILY, (Reported) Prazosin Hcl (Prazosin HCl) 2 Mg Capsule, 4 MG PO QHS, (Reported) Quetiapine Fumarate (Seroquel) 400 Mg Tablet, 400 MG PO QHS, (Reported) TAKES WITH 100MG FOR TOTAL DOSE 500MG QHS Quetiapine Fumarate (Quetiapine Fumarate) 100 Mg Tablet, 100 MG PO QHS, (Reported) TAKES WITH 400MG FOR TOTAL DOSE 500MG QHS Allergies Coded Allergies: bee venom protein (honey bee) (Verified Allergy, Severe, ANAPHYLAXIS, 01/06/20) amoxicillin (Unverified Allergy, Unknown, UNKNOWN REACTION PER PT, 01/06/20) clavulanic acid (Unverified Allergy, Unknown, UNKNOWN REACTION PER PT, 01/06/20) FELICIA NIEVES DO Jan 09, 2020 19:55
--- NOTE | 2020-01-10 16:35 | EEG ---
DATE: 01/07/2020 DIAGNOSIS: Suspected seizure. EEG# [id number]. REFERRING PHYSICIAN: Torie Bautista MD HISTORY: Patient is a 34-year-old man who was admitted at [facility] due to a passing out spell. There was concern of seizure. He is currently on Keppra, amitriptyline, Wellbutrin, Clonidine, Lexapro, lamotrigine, Quetiapine. TECHNICAL DESCRIPTION: This baseline EEG was recorded by 21-scalp, ear, and two EKG electrodes and was reviewed in bipolar and referential montages following reformatting in 10-20 international electrode placement system. INTERPRETATION: Patient was noted to be in awake and drowsy state during this EEG. Resting and awake background rhythm consisted of 9 Hz alpha activity measuring 15-40 microvolts in amplitude, which was symmetric and reactive to eye opening. Attenuation of posterior dominant rhythm was seen during transition to drowsiness. No sleep was achieved. Hyperventilation could not be performed. Photic stimulation remained unremarkable. EKG revealed normal sinus rhythm. No focal, lateralizing, or epileptiform abnormalities were seen. No relevant clinical activity was noted. CONCLUSION: This EEG in awake and drowsy state is within normal limits. MTDD
--- NOTE | 2020-01-11 07:02 | ECHO ---
DATE OF PROCEDURE: 01/08/2020 Age: 34 Gender: Male REFERRING PHYSICIAN: Dr. Hutchinson PATIENT LOCATION: Room 3221 REASON FOR STUDY: Syncope. 2D MEASUREMENTS: IVS 0.9 cm LV 4.8 cm LVPW 0.9 cm LA 3.9 cm Aorta 2.6 cm DOPPLER MEASUREMENT Peak velocity across the aortic valve 1.5 m/s Peak velocity across the LVOT 0.98 m/s Mitral E 1.0 Mitral A 0.3 with a ratio of 3.1 2D COMMENTS: 1. Normal left ventricular size, wall thickness, and normal global left ventricular systolic function. The estimated left ventricular systolic ejection fraction is 60% to 65%. 2. Normal left atrium. Normal right atrium and right ventricle. 3. The atrial septum appeared to be normal without evidence of defect or shunt. 4. Normal aortic root. 5. No pericardial effusion seen. 6. The aortic valve, mitral valve, and tricuspid valve appear to be normal. The pulmonic valve and proximal pulmonary artery branches were not well visualized. 7. The inferior vena cava was not well visualized. Doppler with no significant valvular abnormalities detected, but trace tricuspid regurgitation. Assessment of the left ventricular diastolic function appeared to be normal. CONCLUSIONS: 1. Normal global left ventricular systolic and diastolic function. 2. No significant valvular abnormalities, but trace tricuspid regurgitation. MTDD
[2020-01-14 00:10] LABS: MDPV Negative (NEGATIVE); MEPHEDRONE Negative (NEGATIVE); METHYLONE Negative (NEGATIVE)
== END 2020-01-09 14:32 | DRG 204 ==
LOC: M ED 13:37 → EDBD 13:37 → M ED INP 19:33 → ENRESERV 22:59 → M PCU 23:24
PROVIDERS: ADMIT Internal Medicine; ATTEND Internal Medicine
DX: R55 Syncope and collapse (principal); N17.9 Acute kidney failure, unspecified; E87.2 Acidosis; M62.82 Rhabdomyolysis; R74.01 Elevation of levels of liver transaminase levels; E72.20 Disorder of urea cycle metabolism, unspecified; E11.9 Type 2 diabetes mellitus without complications; I10 Essential (primary) hypertension; E66.9 Obesity, unspecified; Z68.36 Body mass index [BMI] 36.0-36.9, adult; R25.1 Tremor, unspecified; Z79.4 Long term (current) use of insulin; Z79.899 Other long term (current) drug therapy; Z88.0 Allergy status to penicillin; Z88.8 Allergy status to other drugs, medicaments and biological substances; Z91.030 Bee allergy status